=== PATIENT | male | born 1980 | race Caucasian/White ===

== ENCOUNTER → 2017-06-07 | Outpatient (CLI) | payer BC, OTHER ==
[~2017-06-07] MED LIST: E-Z-GAS II EFFERVESCENT PACKET (SODIUM BICARB./CITRIC ACID/SIMETHICONE) As Ordered; E-Z-HD 98% w/w 340GM SUSP BTL As Ordered; E-Z-PAQUE 96% w/w SUSP 176GM BTL As Ordered
[2017-06-07 10:16] LABS: BASO # 0.1 10^3/uL (0.0-0.2); BASO % 0.6 % (0.0-1.0); EOS # 0.6 10^3/uL (0.0-0.50); EOS % 6.1 % (0.0-3.0); HEMATOCRIT 47.1 % (42.0-52.0); HEMOGLOBIN 15.7 g/dl (14.0-18.0); IMMATURE GRANULOCYTE # 0.1 10^3/uL (0-0); IMMATURE GRANULOCYTE % 0.5 % (0-0); LYMPH # 2.3 10^3/uL (1.5-4.5); LYMPH % 24.5 % (24.0-44.0); MEAN CORPUSCULAR HEMOGLOBIN 28.1 pg (27.0-33.0); MEAN CORPUSCULAR HGB CONC 33.3 g/dl (32.0-36.5); MEAN CORPUSCULAR VOLUME 84.4 fl (80.0-96.0); MONO # 0.7 10^3/uL (0.0-0.8); MONO % 7.3 % (0.0-5.0); NEUTROPHILS # 5.7 10^3/uL (1.8-7.7); PLATELET COUNT, AUTOMATED 325 10^3/uL (150-450); RED BLOOD COUNT 5.58 10^6/uL (4.30-6.10); RED CELL DISTRIBUTION WIDTH 12.6 % (11.5-14.5); WHITE BLOOD COUNT 9.4 10^3/uL (4.0-10.0)
[2017-06-07 10:50] LABS: ALBUMIN/GLOBULIN RATIO 0.98 (1.00-1.93); ALKALINE PHOSPHATASE 75 U/L (45-117); ALT/SGPT 44 U/L (12-78); ANION GAP 7 MEQ/L (8-16); AST/SGOT 20 U/L (7-37); BILIRUBIN,TOTAL 0.5 MG/DL (0.2-1.0); BLOOD UREA NITROGEN 13 MG/DL (7-18); CALCIUM LEVEL 9.5 MG/DL (8.5-10.1); CARBON DIOXIDE LEVEL 30 MEQ/L (21-32); CHLORIDE LEVEL 103 MEQ/L (98-107); CHOLESTEROL LEVEL 156 MG/DL (<200); CHOLESTEROL RISK RATIO 3.627 (<5); CREATININE FOR GFR 0.86 MG/DL (0.70-1.30); GLOMERULAR FILTRATION RATE > 60.0 (>60); GLUCOSE, FASTING 89 MG/DL (70-100); HDL CHOLESTEROL 43 MG/DL (>40); LDL CHOLESTEROL 82.4 MG/DL (<100); NON-HDL-C 113 MG/DL; POTASSIUM SERUM 4.5 MEQ/L (3.5-5.1); SODIUM LEVEL 140 MEQ/L (136-145); TOTAL PROTEIN 8.1 GM/DL (6.4-8.2); TRIGLYCERIDES LEVEL 153 MG/DL (<150)
== END ==
LOC: M LAB 08:57
DX: R13.10 Dysphagia, unspecified (principal); J45.909 Unspecified asthma, uncomplicated; Z13.220 Encounter for screening for lipoid disorders

== ENCOUNTER → 2018-12-01 | Outpatient (CLI) | payer BC ==
[~2018-12-01] MED LIST changes: +ADVA115A INH; +CYCL10TA PO; -E-Z-GAS II EFFERVESCENT PACKET (SODIUM BICARB./CITRIC ACID/SIMETHICONE) As Ordered; -E-Z-HD 98% w/w 340GM SUSP BTL As Ordered; -E-Z-PAQUE 96% w/w SUSP 176GM BTL As Ordered; +OMEP40CA2 PO; +TRAM50TA2 PO; +VENTAER IN
--- NOTE | 2018-12-01 10:58 | REP ---
CHEST, TWO VIEWS: There is no evidence of acute infiltrate. No pleural effusion is seen. The heart is normal in size. The mediastinal silhouette is unremarkable. The visualized osseous structures are intact. IMPRESSION: No acute pulmonary disease. Electronically Signed by Hammad Garcia MD 12/01/2018 12:45 P
== END ==
LOC: M LRY 10:01
PROVIDERS: ATTEND Physician Assistant
DX: R07.9 Chest pain, unspecified (principal)

== ENCOUNTER 2018-12-07 20:07 | Emergency (ER) | payer BC, OTHER ==
[~2018-12-07] VITALS: Ht 170.2 cm; Wt 95.5 kg
[~2018-12-07 20:07] MED LIST changes: -OMEP40CA2 PO; +OMEP40CA97 PO
[2018-12-07] MEDS ORDERED: NS 1,000 ML IV ONE (20:45)
[2018-12-07] MEDS ORDERED: ASPIRIN 81 MG CHEW TABLET PO ONE (20:45)
[2018-12-07 20:47] LABS: MEAN CORPUSCULAR HEMOGLOBIN 28.6 pg (27.0-33.0); MEAN CORPUSCULAR HGB CONC 33.3 g/dl (32.0-36.5); MEAN CORPUSCULAR VOLUME 85.9 fl (80.0-96.0); PLATELET COUNT, AUTOMATED 330 10^3/uL (150-450); RED BLOOD COUNT 5.24 10^6/uL (4.30-6.10); WHITE BLOOD COUNT 8.8 10^3/uL (4.0-10.0)
[2018-12-07] MEDS ORDERED: METOCLOPRAMIDE INJ 10MG/2ML VIAL (J2765) IV ONE (21:15)
[2018-12-07 21:16] LABS: ALBUMIN 3.8 GM/DL (3.2-5.2); ALT/SGPT 41 U/L (12-78); BILIRUBIN,TOTAL 0.2 MG/DL (0.2-1.0); BLOOD UREA NITROGEN 13 MG/DL (7-18); CARBON DIOXIDE LEVEL 28 MEQ/L (21-32); CHLORIDE LEVEL 106 MEQ/L (98-107); CK-MB VALUE MASS < 1.0 NG/ML (<3.6); CPK CREATINE PHOSPHOKINASE 67 U/L (39-308); CREATININE FOR GFR 1.14 MG/DL (0.70-1.30); GLOMERULAR FILTRATION RATE > 60.0 (>60); GLUCOSE, FASTING 143 MG/DL (70-100); MB/CK RELATIVE INDEX 1.49 (< OR =4); POTASSIUM SERUM 3.8 MEQ/L (3.5-5.1); SODIUM LEVEL 141 MEQ/L (136-145); TOTAL PROTEIN 7.6 GM/DL (6.4-8.2); TROPONIN I < 0.02 NG/ML (< 0.10)
[2018-12-07 21:59] LABS: INR 1.02; PROTHROMBIN TIME 13.1 SECONDS (11.8-14.0)
[2018-12-07 22:23] LABS: FREE T4 0.89 NG/DL (0.76-1.46); MAGNESIUM LEVEL 2.3 MG/DL (1.8-2.4)
[2018-12-07 22:51] VITALS: BP 148/85
--- NOTE | 2018-12-08 07:50 | REP ---
PA and lateral chest: Comparison is 12/01/2018. The lung faustin are clear. The cardiac size is normal. The sera, mediastinum, and skeletal structures are unremarkable. Impression: Negative PA and lateral chest. There is no interval change. Electronically Signed by Hammad Deng MD 12/08/2018 07:41 A
--- NOTE | 2018-12-09 21:37 | ECGEPIP ---
[facility] - ED Test Date: 2018-12-07 Pat Name: KAR LAINEZ Department: Room: - Gender: Male Social Staff Worker: trisha : 1980 Requested By: SHARIFA VALADEZ Order Number: [id number] Reading MD: Rishi Stroud Measurements Intervals [place] Rate: 73 P: 52 ND: 156 QRS: 2 QRSD: 78 T: 30 QT: 351 QTc: 389 Interpretive Statements SINUS RHYTHM POSSIBLE INCOMPLETE RIGHT BUNDLE BRANCH BLOCK NONSPECIFIC T-WAVE ABNORMALITY NO PRIORS FOR COMPARISON Electronically Signed on 12-09-2018 21:37:24 EDT by Rishi Stroud
== END 2018-12-07 22:52 | disposition home or self-care (01) ==
LOC: M ED 20:07
DX: R00.2 Palpitations (principal); J45.909 Unspecified asthma, uncomplicated; J44.9 Chronic obstructive pulmonary disease, unspecified; M54.9 Dorsalgia, unspecified; Z79.899 Other long term (current) drug therapy
CPT/HCPCS: 71046; 80053; 82550; 82553; 83735; 84439; 84443; 84484; 85027; 85610; 93005; 96374; 99284; J2765

== ENCOUNTER → 2018-12-17 | Outpatient (CLI) | payer BC, OTHER ==
[2018-12-17 11:48] LABS: HEMATOCRIT 45.7 % (42.0-52.0); HEMOGLOBIN 15.2 g/dl (13.5-17.5); MEAN CORPUSCULAR HEMOGLOBIN 28.8 pg (27.0-33.0); MEAN CORPUSCULAR HGB CONC 33.3 g/dl (32.0-36.5); MEAN CORPUSCULAR VOLUME 86.6 fl (80.0-96.0); PLATELET COUNT, AUTOMATED 322 10^3/uL (150-450); RED BLOOD COUNT 5.28 10^6/uL (4.30-6.10); WHITE BLOOD COUNT 8.4 10^3/uL (4.0-10.0)
[2018-12-17 12:20] LABS: HEMOGLOBIN A1c 6.1 %
[2018-12-17 12:27] LABS: ALBUMIN 4.1 GM/DL (3.2-5.2); ALT/SGPT 32 U/L (12-78); BILIRUBIN,TOTAL 0.3 MG/DL (0.2-1.0); BLOOD UREA NITROGEN 20 MG/DL (7-18); CALCIUM LEVEL 9.2 MG/DL (8.5-10.1); CARBON DIOXIDE LEVEL 27 MEQ/L (21-32); CHLORIDE LEVEL 107 MEQ/L (98-107); CHOLESTEROL LEVEL 162 MG/DL (<200); CREATININE FOR GFR 1.02 MG/DL (0.70-1.30); GLOMERULAR FILTRATION RATE > 60.0 (>60); GLUCOSE, FASTING 89 MG/DL (70-100); HDL CHOLESTEROL 40 MG/DL (>40); LDL CHOLESTEROL 105 MG/DL (<100); NON-HDL-C 122 MG/DL; POTASSIUM SERUM 4.5 MEQ/L (3.5-5.1); SODIUM LEVEL 139 MEQ/L (136-145); TOTAL PROTEIN 8.1 GM/DL (6.4-8.2); TRIGLYCERIDES LEVEL 83 MG/DL (<150)
--- NOTE | 2018-12-17 16:37 | ECGEPIP ---
[facility] Test Date: 2018-12-17 Pat Name: KAR LAINEZ Department: Room: - Gender: Male [employer] Lace: RAE : 1980 Requested By: Tristan Jain Order Number: [id number] Reading MD: Lucas Curtis Measurements Intervals [place] Rate: 72 P: 66 MO: 160 QRS: 28 QRSD: 80 T: 15 QT: 349 QTc: 383 Interpretive Statements Normal sinus rhythm Incomplete right bundle branch block Early anterior R wave progression Nonspecific T wave abnormality No significant change when compared to prior tracing of 12/07/2018 Electronically Signed on 12-17-2018 16:37:37 EDT by Lucas Curtis
[2018-12-19 10:23] LABS: TOTAL 25(OH) VITAMIN D 36.4 NG/ML (30.0-100.0)
[2018-12-19 10:24] LABS: TESTOSTERONE 145 NG/DL (241-827)
== END ==
LOC: M LAB 10:58
PROVIDERS: ATTEND Family Medicine
DX: I10 Essential (primary) hypertension (principal); R53.83 Other fatigue

== ENCOUNTER → 2019-02-23 | Outpatient (CLI) | payer BC, OTHER ==
--- NOTE | 2019-02-23 19:01 | REP ---
MRI brain: 02/23/2019. Indication: Headaches and dizziness. Comparison: None. Technique: Multiplanar short and long TR sequences of the brain were performed without IV Gadolinium. Findings: There are no areas of restricted diffusion. There is no intracranial mass effect or hydrocephalous. No abnormal signal is present within the brainstem or brain parenchyma. Midline structures, and craniocervical junction are unremarkable. The large intracranial flow voids are unremarkable as well. There is no evidence of intracranial hemorrhage. Mild periosteal mucosal thickening is noted within the ethmoid air cells and right sphenoid sinus. The mastoid air cells are free of fluid. Sub centimeter scalp sebaceous cyst is noted in the high right parietal region. Impression: No acute intracranial process. Unremarkable brain. Electronically Signed by Wily Whipple DO 02/23/2019 06:53 P
== END ==
LOC: M RAD 17:57
PROVIDERS: ATTEND Family Medicine
DX: R42 Dizziness and giddiness (principal); R51 Headache

== ENCOUNTER → 2019-07-26 | Outpatient (CLI) | payer BC, OTHER ==
--- NOTE | 2019-07-28 10:05 | SLEEPHOME ---
DATE OF PROCEDURE: 07/26/2019 ORDERED BY: Reed Yung Diagnostic home sleep testing was performed due to concern for the obstructive sleep apnea syndrome in a patient with a history of hypertension. For testing, a nocturnal T3 respiratory monitoring device was used. Continuous record was made of pulse, oxygen saturation, airflow, chest and abdominal strain and body position. 9 hours and 59 minutes of data were reviewed. There were 6 hours and 46 minutes marked as time in bed. During the interval marked time in bed, there were 57 respiratory events identified of 10 seconds in duration or greater for a respiratory event index of 8.4. The events were both obstructive and mixed. There were 24 mixed and central apneas seen. Baseline pulse rate was 63 beats per minute, pulse rate ranged 48-99. Baseline saturation 93%, saturations fell to 87%. Testing was performed in both the supine and nonsupine positions. IMPRESSION: Abnormal home sleep testing with repetitive respiratory events and oxygen desaturations to 87% with a respiratory event index of 8.4 is consistent with the obstructive sleep apnea syndrome. RECOMMENDATION: The patient should be encouraged to undergo formal sleep evaluation.
== END ==
LOC: M SLEEP HO 09:32
PROVIDERS: ATTEND Physician Assistant
DX: R06.83 Snoring (principal)

== ENCOUNTER → 2020-01-29 | Outpatient (REF) | payer BC, OTHER ==
[~2020-01-29] MED LIST changes: +CYCL-707 PO; -CYCL10TA PO
== END ==
LOC: M LAB REF 16:36
PROVIDERS: ATTEND Surgery
DX: Z30.2 Encounter for sterilization (principal)

== ENCOUNTER → 2020-04-29 | Outpatient (CLI) | payer BC, OTHER | LOC: M LABSMTC 12:59 | PROVIDERS: ATTEND Family Medicine | DX: Z20.828 Contact with and (suspected) exposure to other viral communicable diseases (principal) ==

== ENCOUNTER 2020-05-03 08:59 | Emergency (ER) | payer BC, OTHER ==
[2020-05-03] MEDS ORDERED: METOCLOPRAMIDE INJ 10MG/2ML VIAL (J2765 PER 1) As Ordered ONE (09:12)
[2020-05-03] MEDS ORDERED: METOCLOPRAMIDE INJ 10MG/2ML VIAL (J2765 PER 1) IV ONE (09:15)
[2020-05-03] MEDS ORDERED: NS 1,000 ML IV ONE ×2 (09:15)
[2020-05-03] MEDS ORDERED: IBUPROFEN 600MG TAB PO ONE (10:00)
[2020-05-03] MEDS ORDERED: ONDANSETRON 4MG/2ML VIAL IV ONE (11:15)
[2020-05-03] MEDS ORDERED: ZOFR4TAB16 PO (12:52)
[2020-05-03] MEDS ORDERED: REGL10TA6 PO (12:53)
[2020-05-03 13:15] VITALS: BP 130/68
[2020-05-03] MEDS ORDERED: ACET1TAB55 PO (13:37)
== END 2020-05-03 13:15 | disposition home or self-care (01) ==
LOC: M ED 08:59
DX: U07.1 COVID-19 (principal); R11.2 Nausea with vomiting, unspecified; E86.0 Dehydration; J45.909 Unspecified asthma, uncomplicated; Z79.51 Long term (current) use of inhaled steroids; Z79.899 Other long term (current) drug therapy
CPT/HCPCS: 36415; 80047; 96361; 96374; 96375; 99284; J2405; J2765

== ENCOUNTER → 2020-09-02 | Outpatient (CLI) | payer BC, OTHER ==
[~2020-09-02] MED LIST changes: +ACET1TAB55 PO; +REGL10TA6 PO; +ZOFR4TAB16 PO
[2020-09-02 09:46] LABS: BASO # 0.1 10^3/uL (0.0-0.2); BASO % 0.9 % (0.0-1.0); EOS # 0.6 10^3/uL (0.0-0.5); EOS % 5.8 % (0.0-3.0); HEMOGLOBIN 15.9 g/dl (13.5-17.5); LYMPH # 2.2 10^3/uL (1.5-5.0); MEAN CORPUSCULAR HEMOGLOBIN 27.7 pg (27.0-33.0); MEAN CORPUSCULAR HGB CONC 32.4 g/dl (32.0-36.5); MEAN CORPUSCULAR VOLUME 85.2 fl (80.0-96.0); MONO # 0.7 10^3/uL (0.0-0.8); MONO % 7.6 % (2.0-8.0); NEUTROPHILS # 6.2 10^3/uL (1.5-8.5); NEUTROPHILS % 63.4 % (36.0-66.0); PLATELET COUNT, AUTOMATED 340 10^3/uL (150-450); RED BLOOD COUNT 5.75 10^6/uL (4.30-6.10); WHITE BLOOD COUNT 9.8 10^3/uL (4.0-10.0)
[2020-09-02 10:27] LABS: ALBUMIN 4.3 GM/DL (3.2-5.2); ALT/SGPT 39 U/L (12-78); BILIRUBIN,TOTAL 0.5 MG/DL (0.2-1.0); BLOOD UREA NITROGEN 12 MG/DL (7-18); CALCIUM LEVEL 10.4 MG/DL (8.5-10.1); CARBON DIOXIDE LEVEL 29 MEQ/L (21-32); CHLORIDE LEVEL 103 MEQ/L (98-107); FREE T4 0.89 NG/DL (0.76-1.46); GLOMERULAR FILTRATION RATE > 60.0 (>60); GLUCOSE, FASTING 100 MG/DL (70-100); POTASSIUM SERUM 4.5 MEQ/L (3.5-5.1); SODIUM LEVEL 138 MEQ/L (136-145); TOTAL PROTEIN 8.2 GM/DL (6.4-8.2)
[2020-09-02 10:38] LABS: HEMOGLOBIN A1c 5.6 %
[2020-09-03 16:12] LABS: TESTOSTERONE FREE (DIRECT) 7.6 pg/mL (8.7-25.1)
== END ==
LOC: M LAB 09:01
PROVIDERS: ATTEND Physician Assistant
DX: R73.01 Impaired fasting glucose (principal); F52.21 Male erectile disorder; K21.9 Gastro-esophageal reflux disease without esophagitis; I10 Essential (primary) hypertension

== ENCOUNTER → 2020-10-22 | Outpatient (CLI) | payer BC, OTHER ==
--- NOTE | 2020-10-22 10:36 | REP ---
INDICATION: RUQ PAIN COMPARISON: None. TECHNIQUE: Real time staples scale ultrasound examination using curved array transducer. FINDINGS: Liver is normal in contour, size, and echogenicity without focal hepatic lesions identified. Pancreas is incompletely evaluated due to interposed bowel gas. The gallbladder demonstrates wall thickening to 5 mm and positive sonographic Oates sign without obvious gallstones. No biliary ductal dilatation is appreciated and the common bile duct measures 3 mm diameter. Right kidney is normal in reniform shape without hydronephrosis and measures 11.6 x 6.2 x 4.5 cm. No ascites in the visualized right upper quadrant. IMPRESSION: Mild gallbladder wall thickening and positive sonographic Oates sign without gallstones or biliary ductal dilatation. Findings are nonspecific and may represent biliary colic. Correlation is required. <Electronically signed by Chaz Ag > 10/22/20 [id number]
== END ==
LOC: M RAD 09:50
PROVIDERS: ATTEND Physician Assistant
DX: R10.11 Right upper quadrant pain (principal)

== ENCOUNTER 2020-11-14 11:09 | Emergency (ER) | payer BC, OTHER ==
[~2020-11-14] VITALS: Ht 170.2 cm; Wt 96.3 kg
[~2020-11-14 11:09] MED LIST changes: +OMEP40CA4 PO; -OMEP40CA97 PO
[2020-11-14] MEDS ORDERED: ALBU8.5H (11:17)
[2020-11-14] MEDS ORDERED: AMLO1TAB24 (11:17)
[2020-11-14] MEDS ORDERED: SILD100T (11:17)
[2020-11-14] MEDS ORDERED: PANT40TA29 PO (11:17)
[2020-11-14] MEDS ORDERED: ADV250INH INH (11:17)
[2020-11-14 11:47] LABS: BASO # 0.1 10^3/uL (0.0-0.2); BASO % 0.5 % (0.0-1.0); EOS # 0.5 10^3/uL (0.0-0.5); EOS % 5.2 % (0.0-3.0); HEMATOCRIT 46.2 % (42.0-52.0); LYMPH # 1.8 10^3/uL (1.5-5.0); LYMPH % 19.1 % (24.0-44.0); MEAN CORPUSCULAR HEMOGLOBIN 27.8 pg (27.0-33.0); MEAN CORPUSCULAR HGB CONC 32.5 g/dl (32.0-36.5); MEAN CORPUSCULAR VOLUME 85.7 fl (80.0-96.0); MONO # 0.8 10^3/uL (0.0-0.8); MONO % 8.9 % (2.0-8.0); NEUTROPHILS # 6.1 10^3/uL (1.5-8.5); NEUTROPHILS % 65.9 % (36.0-66.0); PLATELET COUNT, AUTOMATED 310 10^3/uL (150-450); RED BLOOD COUNT 5.39 10^6/uL (4.30-6.10); WHITE BLOOD COUNT 9.2 10^3/uL (4.0-10.0)
[2020-11-14] MEDS ORDERED: NS 1,000 ML IV ONE (12:05)
[2020-11-14 12:10] LABS: ALBUMIN 3.7 GM/DL (3.2-5.2); ALT/SGPT 49 U/L (12-78); BILIRUBIN,DIRECT < 0.1 MG/DL (0.0-0.2); BILIRUBIN,TOTAL 0.3 MG/DL (0.2-1.0); BLOOD UREA NITROGEN 11 MG/DL (7-18); CALCIUM LEVEL 9.1 MG/DL (8.5-10.1); CARBON DIOXIDE LEVEL 28 MEQ/L (21-32); CHLORIDE LEVEL 107 MEQ/L (98-107); CREATININE FOR GFR 0.99 MG/DL (0.70-1.30); GLOMERULAR FILTRATION RATE > 60.0 (>60); GLUCOSE, FASTING 120 MG/DL (70-100); LIPASE 80 U/L (73-393); POTASSIUM SERUM 3.9 MEQ/L (3.5-5.1); SODIUM LEVEL 139 MEQ/L (136-145); TOTAL PROTEIN 7.6 GM/DL (6.4-8.2)
[2020-11-14] MEDS ORDERED: ISOVUE-370 76% 100ML VIAL As Ordered ONE (12:19)
--- NOTE | 2020-11-14 12:46 | REP ---
INDICATION: LLQ pain, diarrhea x3 days COMPARISON: Ultrasound 10/22/2020.. TECHNIQUE: CT Scan of the abdomen and pelvis was performed with intravenous administration of 100 cc of Isovue 370, without oral contrast. Sagittal and coronal reconstruction images are performed. FINDINGS: Lung bases: Unremarkable. Liver: Normal Gallbladder: Unremarkable. Spleen: Normal. Adrenals: Normal. Pancreas: Normal. Kidneys: Normal. Small and large bowel: There is diffuse thickening of the colon with streaky inflammatory density in the pericolonic fat. The findings are consistent with pancolitis. No free air, obstruction or pneumatosis. Free fluid: None. Abdominal aorta: No aneurysm or dissection. Adenopathy: None. Appendix: Not inflamed. Osseous structures: There are degenerative changes of the spine without compression deformity.. Pelvis: No mass. A small umbilical hernia contains noninflamed fat. IMPRESSION: Pancolitis. No free air, free fluid or bowel obstruction. <Electronically signed by Hammad Garcia > 11/14/20 [id number]
[2020-11-14 14:22] VITALS: BP 137/87
== END 2020-11-14 14:23 | disposition home or self-care (01) ==
LOC: M ED 11:09
DX: K52.9 Noninfective gastroenteritis and colitis, unspecified (principal); K51.00 Ulcerative (chronic) pancolitis without complications; E86.0 Dehydration; I10 Essential (primary) hypertension; K21.9 Gastro-esophageal reflux disease without esophagitis; Z86.16 Personal history of COVID-19; Z79.899 Other long term (current) drug therapy
CPT/HCPCS: 36415; 74177; 80048; 80076; 83690; 85025; 96360; 96361; 99284; Q9967

== ENCOUNTER → 2020-11-15 | Outpatient (REF) | payer BC, OTHER ==
[~2020-11-15] MED LIST changes: +ADV250INH INH; +ALBU8.5H; +AMLO1TAB24; +PANT40TA29 PO; +SILD100T
== END ==
LOC: M LAB REF 10:51
PROVIDERS: ATTEND Physician Assistant
DX: R19.7 Diarrhea, unspecified (principal); K51.00 Ulcerative (chronic) pancolitis without complications

== ENCOUNTER → 2020-12-07 | Outpatient (CLI) | payer BC, OTHER ==
--- NOTE | 2020-12-09 18:02 | SLEEPCENT ---
DATE: 12/07/2020 ORDERED BY: MADISON Valencia Nocturnal polysomnography was performed for evaluation of sleep physiology in this patient with a history of excessive somnolence and nonrestorative sleep. Seven hours and 45 minutes of data were reviewed. There were 267 minutes of sleep identified. Sleep latency was prolonged at 53.5 minutes. REM latency was normal at 95.5 minutes. Sleep architecture showed fragmentation. There were two REM cycles. A prolonged period of wake between 2:15 and 3:20 resulted in a reduced sleep efficiency at 58.5%. The electrocardiogram showed a sinus rhythm with an average heart rate of 75 beats per minute. EEG showed normal waveforms for wake and sleep. There were 91 respiratory events identified of 10 seconds in duration or greater for an apnea-hypopnea index of 20.4. The events were obstructive, not exclusive to sleep stage nor body position Arousals from respiratory events occurred 7 times per hour, and oxygen desaturations were seen into the 70s. There was some minor limb activity and limb movement arousal index was 4.9. IMPRESSION: Obstructive sleep apnea syndrome (G47.33). Apnea-hypopnea index 20.4. RECOMMENDATION: The patient should be encouraged to return to [facility]. In the interim, alcohol and sedative avoidance should be practiced and caution exercised during the operation of motor vehicles. cc: KIKE Larose
== END ==
LOC: M SLEEP 20:00
PROVIDERS: ATTEND Nurse Practitioner Family
DX: G47.33 Obstructive sleep apnea (adult) (pediatric) (principal)

== ENCOUNTER → 2021-01-19 | Outpatient (CLI) | payer BC, OTHER ==
--- NOTE | 2021-01-20 16:26 | SLEEPCENT ---
DATE: 01/19/2021 PROCEDURE: Nocturnal polysomnography CPAP titration. ORDERED BY: MADISON Valencia. Nocturnal polysomnography was performed for the titration of pressure therapy in this patient with obstructive sleep apnea syndrome, apnea-hypopnea index 20.4. For testing, a ResMed AirFit F20 full face mask of medium size was used. 4 cm of water pressure were applied to the circuit, and the lights were extinguished. 7 hours and 21 minutes of data were reviewed. There were 381 minutes of sleep identified. Sleep latency was mildly prolonged at 9.5 minutes. REM latency was normal at 120 minutes. Sleep architecture was good with 4 REM cycles. Overall sleep efficiency 87.5%. The electrocardiogram showed a sinus rhythm with an average heart rate of 62 beats per minute. EEG showed normal waveforms for wake and sleep. Respiratory events were fully palliated with CPAP at a pressure of +8. Some limb activity was noted. Limb movement arousal index on this occasion was 11.7. IMPRESSION: Obstructive sleep apnea syndrome (G47.33). RECOMMENDATION: Nightly use of pressure therapy, 8 cm of water. cc: KIKE Larose
== END ==
LOC: M SLEEP 20:00
PROVIDERS: ATTEND Nurse Practitioner Family
DX: G47.33 Obstructive sleep apnea (adult) (pediatric) (principal)

== ENCOUNTER → 2022-01-08 | Outpatient (CLI) | payer BC, OTHER | LOC: M SLEEP 20:00 | PROVIDERS: ATTEND Nurse Practitioner Family | DX: G47.33 Obstructive sleep apnea (adult) (pediatric) (principal) ==

== ENCOUNTER → 2022-03-11 | Outpatient (CLI) | payer BC, OTHER ==
[2022-03-11 10:13] LABS: HEMOGLOBIN A1c 5.6 %
== END ==
LOC: M LAB 07:58
PROVIDERS: ATTEND Nurse Practitioner Adult Health
DX: R73.03 Prediabetes (principal)

== ENCOUNTER → 2022-06-05 | Outpatient (CLI) | payer BC, OTHER | LOC: M PLARAD 09:33 | PROVIDERS: ATTEND Physician Assistant | DX: M53.3 Sacrococcygeal disorders, not elsewhere classified (principal) ==

== ENCOUNTER 2022-10-26 09:20 | Day surgery (SDC) | payer BC, OTHER ==
[~2022-10-26] VITALS: Ht 167.6 cm; Wt 102.0 kg
[~2022-10-26 09:20] MED LIST changes: -AMLO1TAB24; +AMLO1TAB24 PO; +METO25TA4 PO; -SILD100T; +SILD100T PO; +ZOLO50TA PO
[2022-10-26] MEDS ORDERED: LR 1,000 ML IV SCH ×3 (09:40→14:35)
[2022-10-26] MEDS ORDERED: fentaNYL 100 MCG/2 ML INJECTION As Ordered ONE ×2 (09:55→13:34)
[2022-10-26] MEDS ORDERED: MIDAZOLAM INJ 2MG/2ML VIAL As Ordered ONE (09:55)
[2022-10-26] MEDS ORDERED: LIDOCAINE 2% 100MG/5ML SDV (FOR ANES.) As Ordered ONE (09:55)
[2022-10-26] MEDS ORDERED: ROCURONIUM BROMIDE 50MG/5ML VIAL As Ordered ONE ×3 (09:55→12:42)
[2022-10-26] MEDS ORDERED: SUGAMMADEX SODIUM 500 MG/5 ML VIAL (BRIDION) As Ordered ONE (09:55)
[2022-10-26] MEDS ORDERED: ONDANSETRON 4MG 2ML VIAL As Ordered ONE (09:55)
[2022-10-26] MEDS ORDERED: propofoL 200 MG/20 ML VIAL As Ordered ONE (09:55)
[2022-10-26] MEDS ORDERED: METHYLENE BLUE 0.5% (5MG/ML) 10 ML AMP (PROVAYBLUE) As Ordered ONE (10:28)
[2022-10-26] MEDS ORDERED: OXYMETAZOLINE 0.05% NASAL SPRAY (AFRIN) As Ordered ONE ×3 (10:28→13:46)
[2022-10-26] MEDS ORDERED: LIDOCAINE W/EPINEPHRINE 1% 20ML VIAL As Ordered ONE (10:28)
[2022-10-26] MEDS ORDERED: COCAINE 4% 4ML NASAL SOLUTION BTL As Ordered ONE (10:29)
[2022-10-26] MEDS ORDERED: ACETAMINOPHEN 1000MG 100ML IV BAG As Ordered ONE (11:09)
[2022-10-26] MEDS ORDERED: METOPROLOL 5 MG/5 ML VIAL As Ordered ONE (11:27)
[2022-10-26] MEDS ORDERED: hydrALAZINE 20MG/ML 1ML VIAL As Ordered ONE (11:36)
[2022-10-26] MEDS ORDERED: LABETALOL 100MG/20ML VIAL As Ordered ONE (11:46)
[2022-10-26] MEDS ORDERED: ePHEDrine SULFATE 25 MG/5 ML(5MG/ML) SYRINGE As Ordered ONE (12:31)
[2022-10-26] MEDS ORDERED: CALCIUM CHLORIDE 10% 1 GM/10 ML SYR As Ordered ONE (12:59)
[2022-10-26] MEDS ORDERED: ONDANSETRON 4MG 2ML VIAL IV PRN ×2 (13:50→14:35)
[2022-10-26] MEDS ORDERED: oxyCODONE 5MG TAB PO PRN (13:50)
[2022-10-26] MEDS ORDERED: HYDROMORPHONE HCL 0.5 MG/ 0.5 ML SYRINGE IV PRN (13:50)
[2022-10-26] MEDS ORDERED: fentaNYL 100 MCG/2 ML INJECTION IV PRN (13:50)
[2022-10-26] MEDS ORDERED: ANEXSIA, NORCO 7.5MG/325MG TABLET(HYDROCODONE/APAP) PO PRN (14:35)
[2022-10-26 15:15] VITALS: BP 131/76; TEMP 98.1; O2SAT 96
[2022-11-05] MEDS ORDERED: AMOX500T2 (11:58)
== END 2022-10-26 15:09 | disposition home or self-care (01) ==
LOC: M SDC 09:20
PROVIDERS: ATTEND Otolaryngology
DX: J33.9 Nasal polyp, unspecified (principal); J31.0 Chronic rhinitis; J34.2 Deviated nasal septum; J34.3 Hypertrophy of nasal turbinates; I10 Essential (primary) hypertension; K21.9 Gastro-esophageal reflux disease without esophagitis; M54.50 Low back pain, unspecified; F41.9 Anxiety disorder, unspecified; J45.909 Unspecified asthma, uncomplicated; Z79.51 Long term (current) use of inhaled steroids; Z79.899 Other long term (current) drug therapy
CPT/HCPCS: 30140; 30520; 31257; 31267; 31276; 88305; 93005; A6024; C9143; J0131; J0360; J1100; J2250; J2405; J3010; Q9968

== ENCOUNTER 2022-11-05 11:51 | Emergency (ER) | payer BC, OTHER ==
[~2022-11-05] VITALS: Ht 167.6 cm; Wt 99.8 kg
[2022-11-05] MEDS ORDERED: ACET1TAB37 PO (11:58)
[2022-11-05] MEDS ORDERED: AMOX500T2 PO (11:58)
[2022-11-05] MEDS ORDERED: MOTR200T44 PO (11:58)
[2022-11-05 12:45] LABS: BASO # 0.1 10^3/uL (0.0-0.2); BASO % 0.3 % (0.0-1.0); EOS # 0.3 10^3/uL (0.0-0.5); EOS % 1.3 % (0.0-3.0); HEMATOCRIT 42.1 % (42.0-52.0); HEMOGLOBIN 13.9 g/dl (13.5-17.5); LYMPH # 1.1 10^3/uL (1.5-5.0); LYMPH % 5.2 % (24.0-44.0); MEAN CORPUSCULAR HEMOGLOBIN 27.9 pg (27.0-33.0); MEAN CORPUSCULAR VOLUME 84.5 fl (80.0-96.0); NEUTROPHILS # 18.1 10^3/uL (1.5-8.5); NEUTROPHILS % 84.1 % (36.0-66.0); PLATELET COUNT, AUTOMATED 358 10^3/uL (150-450); RED BLOOD COUNT 4.98 10^6/uL (4.30-6.10); WHITE BLOOD COUNT 21.5 10^3/uL (4.0-10.0)
[2022-11-05 13:01] LABS: BLOOD UREA NITROGEN 15 MG/DL (9-23); CALCIUM LEVEL 9.6 MG/DL (8.5-10.1); CARBON DIOXIDE LEVEL 26 MMOL/L (20-31); CHLORIDE LEVEL 102 MMOL/L (98-107); CREATININE FOR GFR 0.91 MG/DL (0.70-1.30); GLOMERULAR FILTRATION RATE > 60.0 (>60); GLUCOSE, FASTING 111 MG/DL (60-100); SODIUM LEVEL 133 MMOL/L (136-145)
[2022-11-05 13:17] LABS: MONO # 1.7 10^3/uL (0.0-0.8)
[2022-11-05] MEDS ORDERED: ISOVUE-370 76% 100ML VIAL As Ordered ONE (14:49)
[2022-11-05 17:38] VITALS: BP 137/88; TEMP 100.3; O2SAT 98
[2022-11-05] MEDS ORDERED: PRED20TA PO (17:40)
[2022-11-06] MEDS ORDERED: HYDR-3716 PO (20:51)
== END 2022-11-05 17:50 | disposition left against medical advice (07) ==
LOC: M ED 11:51
DX: R50.9 Fever, unspecified (principal); D72.829 Elevated white blood cell count, unspecified; J45.909 Unspecified asthma, uncomplicated; K21.9 Gastro-esophageal reflux disease without esophagitis; Z79.1 Long term (current) use of non-steroidal anti-inflammatories (NSAID); Z79.52 Long term (current) use of systemic steroids; Z79.899 Other long term (current) drug therapy; Z53.9 Procedure and treatment not carried out, unspecified reason
CPT/HCPCS: 70487; 80048; 85025; 87040; 87486; 87581; 87633; 87798; 99284; Q9967

== ENCOUNTER 2022-11-06 16:21 | Inpatient (IN) | payer BC, OTHER ==
[~2022-11-06] VITALS: Ht 167.6 cm; Wt 101.8 kg
[~2022-11-06 16:21] MED LIST changes: +ACET1TAB37 PO; +AMOX500T2 PO; +MOTR200T44 PO; +PRED20TA PO
[2022-11-06] MEDS ORDERED: ACETAMINOPHEN TAB 650MG DOSE (2X325MG) PO ONE (17:05)
[2022-11-06] MEDS ORDERED: NS 1,000 ML IV ONE ×3 (17:05→20:10)
[2022-11-06 17:28] LABS: BASO % 0.2 % (0.0-1.0); EOS % 0.1 % (0.0-3.0); HEMOGLOBIN 12.8 g/dl (13.5-17.5); LYMPH # 0.2 10^3/uL (1.5-5.0); LYMPH % 1.4 % (24.0-44.0); MEAN CORPUSCULAR HEMOGLOBIN 27.8 pg (27.0-33.0); MEAN CORPUSCULAR HGB CONC 32.8 g/dl (32.0-36.5); MEAN CORPUSCULAR VOLUME 84.8 fl (80.0-96.0); MONO # 0.3 10^3/uL (0.0-0.8); MONO % 1.9 % (2.0-8.0); NEUTROPHILS # 15.2 10^3/uL (1.5-8.5); NEUTROPHILS % 95.3 % (36.0-66.0); PLATELET COUNT, AUTOMATED 341 10^3/uL (150-450)
[2022-11-06] MEDS ORDERED: ISOVUE-370 76% 100ML VIAL As Ordered ONE (17:33)
[2022-11-06 17:43] LABS: CPK CREATINE PHOSPHOKINASE 43 U/L (46-171)
[2022-11-06 17:44] LABS: ALBUMIN 3.1 G/DL (3.2-5.2); ALKALINE PHOSPHATASE 102 U/L (46-116); ALT/SGPT 39 U/L (7.0-40); AST/SGOT 16 U/L (<34); BILIRUBIN,DIRECT 0.1 MG/DL (<0.4); BILIRUBIN,TOTAL 0.4 MG/DL (0.3-1.2); BLOOD UREA NITROGEN 15 MG/DL (9-23); CALCIUM LEVEL 9.3 MG/DL (8.5-10.1); CARBON DIOXIDE LEVEL 24 MMOL/L (20-31); CHLORIDE LEVEL 98 MMOL/L (98-107); CK-MB VALUE MASS < 1.0 NG/ML (<3.6); CREATININE FOR GFR 0.89 MG/DL (0.70-1.30); GLOMERULAR FILTRATION RATE > 60.0 (>60); GLUCOSE, FASTING 226 MG/DL (60-100); MB/CK RELATIVE INDEX 2.32 (< OR =4); POTASSIUM SERUM 4.1 MMOL/L (3.5-5.1); SODIUM LEVEL 133 MMOL/L (136-145); TOTAL PROTEIN 7.1 G/DL (5.7-8.2)
[2022-11-06 17:46] LABS: ERYTHROCYTE SEDIMENTATION RATE 127 mm/hr (0-15)
[2022-11-06 17:49] LABS: MONO SCRN NEGATIVE (NEGATIVE)
[2022-11-06 17:53] LABS: INR 1.02; PARTIAL THROMBOPLASTIN TIME 35.9 SECONDS (24.8-34.2); PROTHROMBIN TIME 13.6 SECONDS (12.5-14.5)
[2022-11-06 18:43] LABS: HEMOGLOBIN A1c 5.9 % (4.0-6.0)
[2022-11-06] MEDS ORDERED: KETOROLAC 30 MG/ML 1ML VIAL IV ONE (19:05)
[2022-11-06] MEDS ORDERED: PIPERACILLIN/TAZOBACTAM SOD 3.375 GM in D5W MINI-BAG PLUS 50 ML IV ONE (20:10)
[2022-11-06] MEDS ORDERED: HYDR-3716 PO (20:51)
[2022-11-06] MEDS ORDERED: HOME MED LIST COMPLETE! XX SCH (20:55)
[2022-11-06] MEDS ORDERED: CYCLOBENZAPRINE 10MG TABLET PO PRN (21:05)
[2022-11-06] MEDS ORDERED: KETOROLAC 30 MG/ML 1ML VIAL IV PRN (21:05)
[2022-11-06] MEDS ORDERED: ALBUTEROL 90 MCG/ACT 8GM HFA INHALER INH PRN (21:05)
[2022-11-06 21:17] LABS: AMPHETAMINES LEVEL URINE NEGATIVE (NEGATIVE); BARBITURATES URINE NEGATIVE (NEGATIVE); BENZODIAZEPINES URINE NEGATIVE (NEGATIVE); CANNABINOIDS URINE NEGATIVE (NEGATIVE); COCAINE METABOLITE URINE NEGATIVE (NEGATIVE); METHADONE URINE NEGATIVE (NEGATIVE); OPIATES URINE POSITIVE (NEGATIVE); PHENCYCLIDINE URINE NEGATIVE (NEGATIVE)
[2022-11-06] MEDS ORDERED: CLINDAMYCIN 600 MG in IV 1 EA IV SCH (22:35)
[2022-11-06] MEDS ORDERED: CLINDAMYCIN 150MG CAPSULE PO ONE (23:00)
[2022-11-06] MEDS: ACETAMINOPHEN TAB 650MG DOSE (2X325MG) PO PRN (23:38)
[2022-11-06] MEDS: traMADol 50 MG TAB PO PRN (23:39)
[2022-11-06 23:46] VITALS: BP 147/87; TEMP 97.9; O2SAT 97
[2022-11-07] MEDS: ANEXSIA, NORCO 7.5MG/325MG TABLET(HYDROCODONE/APAP) PO PRN ×4 (00:32→21:45)
[2022-11-07 04:00] VITALS: BP 160/89; TEMP 101.3; O2SAT 99
[2022-11-07] MEDS: ACETAMINOPHEN TAB 650MG DOSE (2X325MG) PO PRN ×2 (05:38→09:50)
[2022-11-07] MEDS: traMADol 50 MG TAB PO PRN (05:39)
[2022-11-07] MEDS ORDERED: CLINDAMYCIN 150MG CAPSULE PO SCH (06:00)
[2022-11-07 06:12] LABS: HEMATOCRIT 35.7 % (42.0-52.0); HEMOGLOBIN 11.4 g/dl (13.5-17.5); MEAN CORPUSCULAR HEMOGLOBIN 27.9 pg (27.0-33.0); MEAN CORPUSCULAR HGB CONC 31.9 g/dl (32.0-36.5); MEAN CORPUSCULAR VOLUME 87.5 fl (80.0-96.0); PLATELET COUNT, AUTOMATED 298 10^3/uL (150-450); RED BLOOD COUNT 4.08 10^6/uL (4.30-6.10); WHITE BLOOD COUNT 13.5 10^3/uL (4.0-10.0)
[2022-11-07 06:59] LABS: ALBUMIN 2.6 G/DL (3.2-5.2); ALKALINE PHOSPHATASE 82 U/L (46-116); ALT/SGPT 31 U/L (7.0-40); AST/SGOT 9 U/L (<34); BILIRUBIN,TOTAL 0.3 MG/DL (0.3-1.2); BLOOD UREA NITROGEN 14 MG/DL (9-23); CALCIUM LEVEL 9.2 MG/DL (8.5-10.1); CARBON DIOXIDE LEVEL 25 MMOL/L (20-31); CHLORIDE LEVEL 106 MMOL/L (98-107); CREATININE FOR GFR 0.69 MG/DL (0.70-1.30); GLOMERULAR FILTRATION RATE > 60.0 (>60); GLUCOSE, FASTING 102 MG/DL (60-100); MAGNESIUM LEVEL 1.9 MG/DL (1.8-2.4); POTASSIUM SERUM 4.1 MMOL/L (3.5-5.1); SODIUM LEVEL 140 MMOL/L (136-145); TOTAL PROTEIN 6.1 G/DL (5.7-8.2)
[2022-11-07] MEDS: ADVAIR HFA 115/21MCG INHALER INH SCH ×2 (07:23→20:12)
[2022-11-07] MEDS ORDERED: NS 1,000 ML IV ONE (07:50)
[2022-11-07] MEDS ORDERED: CLINDAMYCIN 600 MG in IV 1 EA IV SCH (07:50)
[2022-11-07] MEDS ORDERED: NAFCILLIN SOD 1 GM in D5W MINI-BAG PLUS 50 ML IV SCH (08:00)
[2022-11-07] MEDS: KETOROLAC 30 MG/ML 1ML VIAL IV SCH ×3 (08:36→20:15)
[2022-11-07] MEDS: LACTOBACILLUS ACIDOPHILUS CAP (BACID) PO SCH ×4 (08:55→20:14)
[2022-11-07] MEDS: SERTRALINE HCL 50 MG TAB PO SCH (08:55)
[2022-11-07] MEDS: PANTOPRAZOLE 40MG TAB (PROTONIX) PO SCH (08:55)
[2022-11-07] MEDS: amLODIPine 5 MG TAB PO SCH (08:56)
[2022-11-07] MEDS: NS 1,000 ML IV SCH ×2 (10:30→18:05)
[2022-11-07] MEDS: NAFCILLIN SOD 2 GM in D5W MINI-BAG PLUS 50 ML IV SCH ×3 (10:30→18:03)
[2022-11-07] MEDS: NEOSPORIN TOP OINT 15GM TOP SCH ×2 (10:30→20:15)
[2022-11-07 12:42] VITALS: BP 142/88; TEMP 100.1
[2022-11-07 14:00] VITALS: BP 142/82; TEMP 97.9; O2SAT 93
[2022-11-07 16:16] LABS: PROCALCITONIN 0.29 ng/ml
[2022-11-07 18:00] VITALS: BP 127/81; TEMP 97.7; O2SAT 82
[2022-11-07] MEDS: cefTRIAXone SOD 2 GM in D5W MINI-BAG PLUS 50 ML IV SCH (20:14)
[2022-11-07 21:00] VITALS: BP 137/80; TEMP 98.8; O2SAT 95
[2022-11-08] VITALS (10 sets, daily range): BP systolic 115–147; BP diastolic 74–95; TEMP 98–100.9; O2SAT 94–96
[2022-11-08] MEDS: ONDANSETRON 4MG 2ML VIAL IV PRN ×3 (01:41→20:30)
[2022-11-08] MEDS: KETOROLAC 30 MG/ML 1ML VIAL IV SCH ×4 (01:43→20:15)
[2022-11-08] MEDS: NS 1,000 ML IV SCH (04:37)
[2022-11-08] MEDS: ANEXSIA, NORCO 7.5MG/325MG TABLET(HYDROCODONE/APAP) PO PRN ×2 (05:35→10:47)
[2022-11-08] MEDS: traMADol 50 MG TAB PO PRN (05:37)
[2022-11-08] MEDS ORDERED: RAMELTEON 8 MG TAB (ROZEREM) PO PRN (06:35)
[2022-11-08] MEDS ORDERED: PERCOCET 5MG/325MG TAB PO PRN (06:40)
[2022-11-08] MEDS ORDERED: MORPHINE 2 MG/ML 1ML VIAL IV PRN (06:40)
[2022-11-08] MEDS ORDERED: HYDROMORPHONE HCL 0.5 MG/ 0.5 ML SYRINGE IV ONE (07:00)
[2022-11-08 07:01] LABS: BASO % 0.3 % (0.0-1.0); EOS # 0.1 10^3/uL (0.0-0.5); EOS % 0.7 % (0.0-3.0); HEMATOCRIT 35.2 % (42.0-52.0); HEMOGLOBIN 11.2 g/dl (13.5-17.5); LYMPH # 1.4 10^3/uL (1.5-5.0); LYMPH % 9.7 % (24.0-44.0); MEAN CORPUSCULAR HEMOGLOBIN 27.3 pg (27.0-33.0); MEAN CORPUSCULAR HGB CONC 31.8 g/dl (32.0-36.5); MEAN CORPUSCULAR VOLUME 85.9 fl (80.0-96.0); MONO # 1.1 10^3/uL (0.0-0.8); MONO % 7.6 % (2.0-8.0); NEUTROPHILS # 11.9 10^3/uL (1.5-8.5); PLATELET COUNT, AUTOMATED 292 10^3/uL (150-450); WHITE BLOOD COUNT 14.7 10^3/uL (4.0-10.0)
[2022-11-08 07:08] LABS: ERYTHROCYTE SEDIMENTATION RATE 98 mm/hr (0-15)
[2022-11-08 07:21] LABS: ALBUMIN 2.8 G/DL (3.2-5.2); ALKALINE PHOSPHATASE 78 U/L (46-116); ALT/SGPT 30 U/L (7.0-40); AST/SGOT 24 U/L (<34); BILIRUBIN,DIRECT < 0.1 MG/DL (<0.4); BILIRUBIN,TOTAL 0.3 MG/DL (0.3-1.2); BLOOD UREA NITROGEN 8 MG/DL (9-23); CALCIUM LEVEL 8.5 MG/DL (8.5-10.1); CARBON DIOXIDE LEVEL 26 MMOL/L (20-31); CHLORIDE LEVEL 102 MMOL/L (98-107); CREATININE FOR GFR 0.69 MG/DL (0.70-1.30); GLOMERULAR FILTRATION RATE > 60.0 (>60); GLUCOSE, FASTING 126 MG/DL (60-100); SODIUM LEVEL 136 MMOL/L (136-145); TOTAL PROTEIN 6.3 G/DL (5.7-8.2)
[2022-11-08 07:23] LABS: IMMUNOGLOBULIN A 187.8 MG/DL (40-350); IMMUNOGLOBULIN G 1216 MG/DL (650-1600); IMMUNOGLOBULIN M 76.8 MG/DL (50-300)
[2022-11-08 07:26] LABS: IMMUNOGLOBULIN E 985.6 IU/ML (0-378)
[2022-11-08 07:28] LABS: PROCALCITONIN 0.55 ng/ml
[2022-11-08] MEDS: ADVAIR HFA 115/21MCG INHALER INH SCH ×2 (08:05→19:37)
[2022-11-08] MEDS: amLODIPine 5 MG TAB PO SCH (08:14)
[2022-11-08] MEDS: PANTOPRAZOLE 40MG TAB (PROTONIX) PO SCH (08:14)
[2022-11-08] MEDS: SERTRALINE HCL 50 MG TAB PO SCH (08:14)
[2022-11-08] MEDS: LACTOBACILLUS ACIDOPHILUS CAP (BACID) PO SCH ×4 (08:14→20:46)
[2022-11-08] MEDS: NEOSPORIN TOP OINT 15GM TOP SCH ×2 (08:16→20:46)
[2022-11-08] MEDS: BENZOCAINE 10% 9GM TUBE (ANBESOL) MT SCH ×4 (08:19→20:46)
[2022-11-08] MEDS: ACETAMINOPHEN TAB 650MG DOSE (2X325MG) PO PRN (17:12)
[2022-11-08] MEDS ORDERED: VANCOMYCIN HCL 1,000 MG, VIAL MATE ADAPTER 1 EACH in D5W 250 ML IV SCH (17:25)
[2022-11-08] MEDS ORDERED: VANCOMYCIN HCL 1,000 MG, VIAL MATE ADAPTER 1 EACH in D5W 250 ML IV ONE ×2 (18:00→19:00)
[2022-11-08] MEDS: METOCLOPRAMIDE INJ 10MG/2ML VIAL IV SCH (18:02)
[2022-11-08] MEDS: cefTRIAXone SOD 2 GM in D5W MINI-BAG PLUS 50 ML IV SCH (20:31)
[2022-11-09] MEDS: CEFEPIME HCL 2 GM in D5W MINI-BAG PLUS 50 ML IV SCH ×2 (00:17→12:41)
[2022-11-09] MEDS: METOCLOPRAMIDE INJ 10MG/2ML VIAL IV SCH ×4 (00:17→17:47)
[2022-11-09] MEDS: KETOROLAC 30 MG/ML 1ML VIAL IV SCH ×4 (01:28→20:08)
[2022-11-09 01:37] VITALS: BP 146/90; TEMP 100.2; O2SAT 96
[2022-11-09] MEDS ORDERED: VANCOMYCIN HCL 750 MG, VIAL MATE ADAPTER 1 EACH in D5W 250 ML IV SCH (02:00)
[2022-11-09 02:30] VITALS: TEMP 99.4
[2022-11-09] MEDS ORDERED: VANCOMYCIN HCL 500 MG in D5W MINI-BAG PLUS 100 ML IV SCH (03:00)
[2022-11-09 05:40] VITALS: BP 149/89; TEMP 99.3; O2SAT 96
[2022-11-09 06:30] LABS: BASO # 0.1 10^3/uL (0.0-0.2); BASO % 0.4 % (0.0-1.0); EOS # 0.2 10^3/uL (0.0-0.5); EOS % 1.8 % (0.0-3.0); HEMATOCRIT 34.6 % (42.0-52.0); HEMOGLOBIN 11.2 g/dl (13.5-17.5); LYMPH % 16.4 % (24.0-44.0); MEAN CORPUSCULAR HEMOGLOBIN 27.7 pg (27.0-33.0); MEAN CORPUSCULAR HGB CONC 32.4 g/dl (32.0-36.5); MEAN CORPUSCULAR VOLUME 85.6 fl (80.0-96.0); MONO # 1.1 10^3/uL (0.0-0.8); MONO % 9.2 % (2.0-8.0); NEUTROPHILS # 8.8 10^3/uL (1.5-8.5); NEUTROPHILS % 71.4 % (36.0-66.0); PLATELET COUNT, AUTOMATED 299 10^3/uL (150-450); RED BLOOD COUNT 4.04 10^6/uL (4.30-6.10); WHITE BLOOD COUNT 12.3 10^3/uL (4.0-10.0)
[2022-11-09 07:02] LABS: C REACTIVE PROTEIN QUANTITATIV 21.4 MG/DL (<1.0)
[2022-11-09 07:03] LABS: ALBUMIN 2.7 G/DL (3.2-5.2); ALKALINE PHOSPHATASE 71 U/L (46-116); ALT/SGPT 24 U/L (7.0-40); AST/SGOT < 8 U/L (<34); BILIRUBIN,TOTAL 0.3 MG/DL (0.3-1.2); BLOOD UREA NITROGEN 7 MG/DL (9-23); CALCIUM LEVEL 8.4 MG/DL (8.5-10.1); CARBON DIOXIDE LEVEL 29 MMOL/L (20-31); CHLORIDE LEVEL 101 MMOL/L (98-107); CREATININE FOR GFR 0.74 MG/DL (0.70-1.30); GLOMERULAR FILTRATION RATE > 60.0 (>60); GLUCOSE, FASTING 100 MG/DL (60-100); POTASSIUM SERUM 3.8 MMOL/L (3.5-5.1); SODIUM LEVEL 138 MMOL/L (136-145); TOTAL PROTEIN 6.2 G/DL (5.7-8.2)
[2022-11-09] MEDS: amLODIPine 5 MG TAB PO SCH (09:12)
[2022-11-09] MEDS: VANCOMYCIN HCL 1,000 MG, VIAL MATE ADAPTER 1 EACH in D5W 250 ML IV SCH ×2 (09:13→17:47)
[2022-11-09] MEDS: LACTOBACILLUS ACIDOPHILUS CAP (BACID) PO SCH ×4 (09:13→20:08)
[2022-11-09] MEDS: PANTOPRAZOLE 40MG TAB (PROTONIX) PO SCH (09:13)
[2022-11-09] MEDS: SERTRALINE HCL 50 MG TAB PO SCH (09:13)
[2022-11-09] MEDS: NEOSPORIN TOP OINT 15GM TOP SCH ×2 (09:13→20:05)
[2022-11-09] MEDS: BENZOCAINE 10% 9GM TUBE (ANBESOL) MT SCH ×4 (09:14→20:05)
[2022-11-09 10:35] LABS: PROCALCITONIN 0.32 ng/ml
[2022-11-09] MEDS: ADVAIR HFA 115/21MCG INHALER INH SCH ×2 (11:26→20:36)
[2022-11-09] MEDS: ACETAMINOPHEN TAB 650MG DOSE (2X325MG) PO PRN (12:50)
[2022-11-09 14:00] VITALS: BP 114/57; TEMP 99.7; O2SAT 99
[2022-11-09 18:00] VITALS: BP 134/81; TEMP 98.4; O2SAT 94
[2022-11-09] MEDS ORDERED: VANCOMYCIN HCL 500 MG in D5W MINI-BAG PLUS 100 ML IV ONE (19:00)
[2022-11-09 21:42] VITALS: BP 140/85; TEMP 98.5; O2SAT 96
[2022-11-10] MEDS: CEFEPIME HCL 2 GM in D5W MINI-BAG PLUS 50 ML IV SCH ×2 (00:15→12:56)
[2022-11-10] MEDS: METOCLOPRAMIDE INJ 10MG/2ML VIAL IV SCH ×2 (00:15→05:50)
[2022-11-10 00:20] VITALS: BP 133/83; TEMP 98.8; O2SAT 97
[2022-11-10] MEDS: VANCOMYCIN HCL 750 MG, VIAL MATE ADAPTER 1 EACH in D5W 250 ML IV SCH ×3 (02:06→17:36)
[2022-11-10] MEDS: VANCOMYCIN HCL 500 MG in D5W MINI-BAG PLUS 100 ML IV SCH ×3 (03:19→18:49)
[2022-11-10] MEDS: ACETAMINOPHEN TAB 650MG DOSE (2X325MG) PO PRN ×3 (05:54→20:08)
[2022-11-10 06:00] VITALS: BP 132/83; TEMP 98.4; O2SAT 96
[2022-11-10] MEDS: ADVAIR HFA 115/21MCG INHALER INH SCH ×2 (08:09→20:18)
[2022-11-10 08:14] LABS: BASO # 0.1 10^3/uL (0.0-0.2); BASO % 0.4 % (0.0-1.0); EOS # 0.5 10^3/uL (0.0-0.5); EOS % 4.3 % (0.0-3.0); HEMOGLOBIN 11.8 g/dl (13.5-17.5); LYMPH # 1.7 10^3/uL (1.5-5.0); LYMPH % 13.7 % (24.0-44.0); MEAN CORPUSCULAR HEMOGLOBIN 27.8 pg (27.0-33.0); MEAN CORPUSCULAR HGB CONC 32.8 g/dl (32.0-36.5); MEAN CORPUSCULAR VOLUME 84.7 fl (80.0-96.0); MONO # 0.9 10^3/uL (0.0-0.8); MONO % 7.4 % (2.0-8.0); NEUTROPHILS # 9.1 10^3/uL (1.5-8.5); NEUTROPHILS % 73.1 % (36.0-66.0); PLATELET COUNT, AUTOMATED 348 10^3/uL (150-450); RED BLOOD COUNT 4.25 10^6/uL (4.30-6.10); WHITE BLOOD COUNT 12.5 10^3/uL (4.0-10.0)
[2022-11-10 08:23] LABS: BLOOD UREA NITROGEN 9 MG/DL (9-23); CALCIUM LEVEL 9.5 MG/DL (8.5-10.1); CARBON DIOXIDE LEVEL 28 MMOL/L (20-31); CHLORIDE LEVEL 101 MMOL/L (98-107); CREATININE FOR GFR 0.74 MG/DL (0.70-1.30); GLOMERULAR FILTRATION RATE > 60.0 (>60); GLUCOSE, FASTING 103 MG/DL (60-100); POTASSIUM SERUM 3.8 MMOL/L (3.5-5.1); SODIUM LEVEL 137 MMOL/L (136-145)
[2022-11-10] MEDS: SERTRALINE HCL 50 MG TAB PO SCH (08:37)
[2022-11-10] MEDS: LACTOBACILLUS ACIDOPHILUS CAP (BACID) PO SCH ×4 (08:37→20:08)
[2022-11-10] MEDS: PANTOPRAZOLE 40MG TAB (PROTONIX) PO SCH (08:37)
[2022-11-10] MEDS: NEOSPORIN TOP OINT 15GM TOP SCH ×2 (08:38→20:08)
[2022-11-10] MEDS: BENZOCAINE 10% 9GM TUBE (ANBESOL) MT SCH ×4 (08:38→20:09)
[2022-11-10] MEDS: amLODIPine 5 MG TAB PO SCH (08:38)
[2022-11-10 10:00] VITALS: BP 145/90; TEMP 97.2; O2SAT 96
[2022-11-10 14:00] VITALS: BP 139/88; TEMP 99; O2SAT 99
[2022-11-10 22:00] VITALS: BP 118/81; TEMP 98.2; O2SAT 91
[2022-11-11] MEDS: CEFEPIME HCL 2 GM in D5W MINI-BAG PLUS 50 ML IV SCH (00:18)
[2022-11-11] MEDS: VANCOMYCIN HCL 750 MG, VIAL MATE ADAPTER 1 EACH in D5W 250 ML IV SCH ×3 (01:00→10:14)
[2022-11-11 02:00] VITALS: BP 124/82; TEMP 99; O2SAT 95
[2022-11-11] MEDS: VANCOMYCIN HCL 500 MG in D5W MINI-BAG PLUS 100 ML IV SCH ×2 (02:02→11:00)
[2022-11-11 06:00] VITALS: BP 124/85; TEMP 98.1; O2SAT 94
[2022-11-11 06:11] LABS: BASO # 0.1 10^3/uL (0.0-0.2); BASO % 0.4 % (0.0-1.0); EOS # 0.6 10^3/uL (0.0-0.5); EOS % 4.7 % (0.0-3.0); HEMOGLOBIN 11.9 g/dl (13.5-17.5); LYMPH % 15.8 % (24.0-44.0); MEAN CORPUSCULAR HEMOGLOBIN 27.5 pg (27.0-33.0); MEAN CORPUSCULAR HGB CONC 32.2 g/dl (32.0-36.5); MEAN CORPUSCULAR VOLUME 85.5 fl (80.0-96.0); MONO % 7.7 % (2.0-8.0); NEUTROPHILS # 8.9 10^3/uL (1.5-8.5); NEUTROPHILS % 68.5 % (36.0-66.0); PLATELET COUNT, AUTOMATED 418 10^3/uL (150-450); RED BLOOD COUNT 4.33 10^6/uL (4.30-6.10); WHITE BLOOD COUNT 12.9 10^3/uL (4.0-10.0)
[2022-11-11 06:38] LABS: BLOOD UREA NITROGEN 10 MG/DL (9-23); CALCIUM LEVEL 8.8 MG/DL (8.5-10.1); CARBON DIOXIDE LEVEL 28 MMOL/L (20-31); CHLORIDE LEVEL 101 MMOL/L (98-107); CREATININE FOR GFR 0.76 MG/DL (0.70-1.30); GLOMERULAR FILTRATION RATE > 60.0 (>60); GLUCOSE, FASTING 96 MG/DL (60-100); POTASSIUM SERUM 4.2 MMOL/L (3.5-5.1); SODIUM LEVEL 137 MMOL/L (136-145)
[2022-11-11] MEDS: ADVAIR HFA 115/21MCG INHALER INH SCH (07:50)
[2022-11-11] MEDS: SERTRALINE HCL 50 MG TAB PO SCH (08:37)
[2022-11-11] MEDS: LACTOBACILLUS ACIDOPHILUS CAP (BACID) PO SCH (08:37)
[2022-11-11] MEDS: PANTOPRAZOLE 40MG TAB (PROTONIX) PO SCH (08:37)
[2022-11-11 08:38] VITALS: BP 124/93
[2022-11-11] MEDS: BENZOCAINE 10% 9GM TUBE (ANBESOL) MT SCH (08:38)
[2022-11-11] MEDS: amLODIPine 5 MG TAB PO SCH (08:38)
[2022-11-11] MEDS: NEOSPORIN TOP OINT 15GM TOP SCH (08:39)
[2022-11-11] MEDS ORDERED: ENOXAPARIN 40MG/0.4ML SYRINGE (J1650 PER 10MG) SC SCH (09:00)
[2022-11-11 10:00] VITALS: BP 122/87; TEMP 98.2; O2SAT 96
[2022-11-11] MEDS ORDERED: DOXY100C3 PO (11:01)
[2022-11-11] MEDS ORDERED: NEOM28OI TOP (11:01)
[2022-11-11] MEDS ORDERED: LEVO1TAB40 PO (11:01)
[2022-11-12 10:12] LABS: HERPES ZOSTER, VARICELLA IgG 2656 index (Immune >165); HERPES ZOSTER, VARICELLA IgM <0.91 index (0.00-0.90)
[2022-11-12 11:10] LABS: ANTINUCLEAR ANTIBODIES DIRECT Negative (Negative); IMMUNOGLOBULIN D 3.93 mg/dL (<14.11)
[2022-11-13 14:09] LABS: HSV-1 DNA Negative (Negative); HSV-2 DNA Negative (Negative)
== END 2022-11-11 12:31 | disposition home or self-care (01) | DRG 720 ==
LOC: M ED 16:21 → M ED INP 21:02 → ENRESERV 23:11 → M MSPAV 23:47
PROVIDERS: ADMIT Internal Medicine; ATTEND Internal Medicine
DX: A41.9 Sepsis, unspecified organism (principal); E87.20 Acidosis, unspecified; J44.9 Chronic obstructive pulmonary disease, unspecified; G47.33 Obstructive sleep apnea (adult) (pediatric); F32.A Depression, unspecified; M54.59 Other low back pain; I10 Essential (primary) hypertension; L73.9 Follicular disorder, unspecified; J32.9 Chronic sinusitis, unspecified; K08.89 Other specified disorders of teeth and supporting structures; J45.909 Unspecified asthma, uncomplicated; K21.9 Gastro-esophageal reflux disease without esophagitis; Z79.899 Other long term (current) drug therapy; L08.0 Pyoderma

== ENCOUNTER → 2022-11-17 | Outpatient (CLI) | payer BC, OTHER ==
[~2022-11-17] MED LIST changes: +DOXY100C3 PO; +HYDR-3716 PO; +LEVO1TAB40 PO; +NEOM28OI TOP
[2022-11-17 14:53] LABS: BASO # 0.1 10^3/uL (0.0-0.2); BASO % 0.5 % (0.0-1.0); EOS # 0.3 10^3/uL (0.0-0.5); EOS % 3.1 % (0.0-3.0); HEMATOCRIT 40.7 % (42.0-52.0); HEMOGLOBIN 12.7 g/dl (13.5-17.5); LYMPH # 2.2 10^3/uL (1.5-5.0); LYMPH % 19.4 % (24.0-44.0); MEAN CORPUSCULAR HEMOGLOBIN 27.4 pg (27.0-33.0); MEAN CORPUSCULAR HGB CONC 31.2 g/dl (32.0-36.5); MEAN CORPUSCULAR VOLUME 87.7 fl (80.0-96.0); MONO # 1.1 10^3/uL (0.0-0.8); MONO % 9.7 % (2.0-8.0); NEUTROPHILS # 7.4 10^3/uL (1.5-8.5); NEUTROPHILS % 66.3 % (36.0-66.0); PLATELET COUNT, AUTOMATED 573 10^3/uL (150-450); RED BLOOD COUNT 4.64 10^6/uL (4.30-6.10); WHITE BLOOD COUNT 11.1 10^3/uL (4.0-10.0)
[2022-11-17 15:27] LABS: ERYTHROCYTE SEDIMENTATION RATE 107 mm/hr (0-15)
== END ==
LOC: M PLALAB 11:36
PROVIDERS: ATTEND Family Medicine
DX: M25.471 Effusion, right ankle (principal)

== ENCOUNTER → 2022-12-03 | Outpatient (CLI) | payer BC, OTHER | LOC: M WUC 15:21 | PROVIDERS: ATTEND Family Medicine | DX: R50.9 Fever, unspecified (principal); R21 Rash and other nonspecific skin eruption; R65.10 Systemic inflammatory response syndrome (SIRS) of non-infectious origin without acute organ dysfunction ==

== ENCOUNTER → 2023-09-23 | Outpatient (CLI) | payer BC | LOC: M PLAIMG 11:30 | PROVIDERS: ATTEND Family Medicine | DX: M54.14 Radiculopathy, thoracic region (principal); M54.16 Radiculopathy, lumbar region ==

== ENCOUNTER 2024-09-21 06:52 | Emergency (ER) | payer BC ==
[~2024-09-21] VITALS: Ht 167.6 cm; Wt 100.0 kg
[~2024-09-21 06:52] MED LIST changes: -ADV250INH INH; +ADVA1AER9 INH
[2024-09-21 08:19] LABS: BASO # 0.1 10^3/uL (0.0-0.2); BASO % 0.7 % (0.0-1.0); EOS # 0.5 10^3/uL (0.0-0.5); EOS % 5.6 % (0.0-3.0); HEMATOCRIT 46.5 % (42.0-52.0); HEMOGLOBIN 15.4 g/dl (13.5-17.5); LYMPH # 1.8 10^3/uL (1.5-5.0); LYMPH % 19.2 % (24.0-44.0); MEAN CORPUSCULAR HEMOGLOBIN 28.1 pg (27.0-33.0); MEAN CORPUSCULAR HGB CONC 33.1 g/dl (32.0-36.5); MEAN CORPUSCULAR VOLUME 84.7 fl (80.0-96.0); MONO # 0.9 10^3/uL (0.0-0.8); MONO % 8.9 % (2.0-8.0); NEUTROPHILS # 6.2 10^3/uL (1.5-8.5); NEUTROPHILS % 65.2 % (36.0-66.0); PLATELET COUNT, AUTOMATED 320 10^3/uL (150-450); RED BLOOD COUNT 5.49 10^6/uL (4.30-6.10); WHITE BLOOD COUNT 9.6 10^3/uL (4.0-10.0)
[2024-09-21] MEDS: KETOROLAC 30 MG/ML 1ML VIAL IV ONE (08:35)
[2024-09-21 09:12] LABS: BLOOD UREA NITROGEN 15 MG/DL (9-23); CALCIUM LEVEL 9.1 MG/DL (8.5-10.1); CARBON DIOXIDE LEVEL 28 MMOL/L (20-31); CHLORIDE LEVEL 105 MMOL/L (98-107); CREATININE FOR GFR 0.84 MG/DL (0.70-1.30); GLOMERULAR FILTRATION RATE > 90.0 (>60); GLUCOSE, FASTING 106 MG/DL (60-100); POTASSIUM SERUM 4.5 MMOL/L (3.5-5.1); SODIUM LEVEL 141 MMOL/L (136-145)
[2024-09-21 09:17] LABS: URIC ACID 7.2 MG/DL (3.7-9.2)
[2024-09-21] MEDS: MORPHINE 4 MG/ML 1ML VIAL IV ONE (10:07)
[2024-09-21] MEDS: ONDANSETRON 4MG 2ML VIAL IV ONE (10:07)
[2024-09-21 12:15] VITALS: BP 148/84; TEMP 97.8; O2SAT 98
[2024-09-21] MEDS ORDERED: KETO-204 PO (12:22)
[2024-09-21] MEDS ORDERED: CEPH500C PO (12:22)
== END 2024-09-21 12:37 | disposition home or self-care (01) ==
LOC: M ED 06:52
DX: M25.572 Pain in left ankle and joints of left foot (principal); I10 Essential (primary) hypertension; J45.909 Unspecified asthma, uncomplicated; Z98.52 Vasectomy status; Z79.52 Long term (current) use of systemic steroids; Z79.1 Long term (current) use of non-steroidal anti-inflammatories (NSAID); Z79.899 Other long term (current) drug therapy
CPT/HCPCS: 73610; 80048; 84550; 85025; 85652; 86140; 93971; 96374; 96375; 99284; J1885; J2405

== ENCOUNTER 2024-09-23 10:49 | Emergency (ER) | payer BC ==
[~2024-09-23] VITALS: Ht 167.6 cm; Wt 99.7 kg
[~2024-09-23 10:49] MED LIST changes: +CEPH500C PO; +KETO-204 PO
[2024-09-23] MEDS: MORPHINE 4 MG/ML 1ML VIAL IV ONE (12:07)
[2024-09-23 12:12] LABS: BASO % 0.4 % (0.0-1.0); EOS # 0.4 10^3/uL (0.0-0.5); EOS % 4.2 % (0.0-3.0); HEMATOCRIT 43.3 % (42.0-52.0); HEMOGLOBIN 14.4 g/dl (13.5-17.5); LYMPH % 19.6 % (24.0-44.0); MEAN CORPUSCULAR HEMOGLOBIN 28.2 pg (27.0-33.0); MEAN CORPUSCULAR HGB CONC 33.3 g/dl (32.0-36.5); MEAN CORPUSCULAR VOLUME 84.9 fl (80.0-96.0); MONO % 9.6 % (2.0-8.0); NEUTROPHILS # 6.9 10^3/uL (1.5-8.5); NEUTROPHILS % 65.8 % (36.0-66.0); PLATELET COUNT, AUTOMATED 339 10^3/uL (150-450); WHITE BLOOD COUNT 10.4 10^3/uL (4.0-10.0)
[2024-09-23 12:17] LABS: ERYTHROCYTE SEDIMENTATION RATE 38 mm/hr (0-15)
[2024-09-23 12:37] LABS: URIC ACID 7.8 MG/DL (3.7-9.2)
[2024-09-23 12:40] LABS: BLOOD UREA NITROGEN 16 MG/DL (9-23); C REACTIVE PROTEIN QUANTITATIV 1.99 MG/DL (<1.0); CALCIUM LEVEL 9.2 MG/DL (8.5-10.1); CARBON DIOXIDE LEVEL 27 MMOL/L (20-31); CHLORIDE LEVEL 106 MMOL/L (98-107); CREATININE FOR GFR 0.77 MG/DL (0.70-1.30); GLOMERULAR FILTRATION RATE > 90.0 (>60); GLUCOSE, FASTING 90 MG/DL (60-100); SODIUM LEVEL 143 MMOL/L (136-145)
[2024-09-23] MEDS: KETOROLAC 30 MG/ML 1ML VIAL IV ONE (12:47)
[2024-09-23] MEDS: methylPREDNISolone 125MG 2ML VIAL IV ONE (13:14)
[2024-09-23] MEDS ORDERED: MEDR4PAK PO (13:18)
[2024-09-23 13:31] VITALS: BP 117/71; TEMP 97.3; O2SAT 99
== END 2024-09-23 13:33 | disposition home or self-care (01) ==
LOC: M ED 10:49
DX: M25.572 Pain in left ankle and joints of left foot (principal); K21.9 Gastro-esophageal reflux disease without esophagitis; I10 Essential (primary) hypertension; Z79.52 Long term (current) use of systemic steroids; Z79.1 Long term (current) use of non-steroidal anti-inflammatories (NSAID); Z79.899 Other long term (current) drug therapy
CPT/HCPCS: 80048; 84550; 85025; 85652; 86140; 86618; 96374; 96375; 99284; J1885; J2919